=== PATIENT | male | born 1970 | race Caucasian/White ===

== ENCOUNTER 2021-09-08 09:40 | Outpatient (CLI) | payer OTHER, SELFPAY ==
[2021-09-08 21:14] LABS: Prostate Specific Antigen 1.5 ng/mL (< OR = 4.0)
== END 2021-09-08 09:41 | disposition home or self-care (01) ==
LOC: ANHGOSHLAB 09:42
PROVIDERS: PCP Internal Medicine; Visit Provider Nurse Practitioner
DX: Z12.5 Encounter for screening for malignant neoplasm of prostate (principal)
CPT/HCPCS: 36415; 84153; G0103

== ENCOUNTER 2022-02-25 01:20 | Day surgery (SDC) | payer OTHER, SELFPAY ==
[2022-02-16 09:26] VITALS: BMI 32.5
[2022-02-25 08:06] VITALS: BP 138/84; PULSE 76; RESP 16; TEMP 36.1; O2SAT 98; BMI 32.5
[2022-02-25] MEDS: LACTATED RINGERS 1,000 ML 150 ML IV CONT (08:13)
--- NOTE | 2022-02-25 08:51 | P.PNAN_ITS ---
Anes - Initial Pre Proc Eval Procedure: Operation Date: 02/25/22 08:30 Proposed Procedures p Screening Colonoscopy - Memo Collazo MD Date/Time: 02/25/22 08:51 Surgeon: Memo Collazo MD Pre Op Diagnosis: neoplasm screening Patient Data Age: 52 Gender: M Height: 1.75 m Weight: 100.1 kg Last Vital Signs Temp 97 F L 02/25/22 08:06 Pulse 76 02/25/22 08:06 Resp 16 02/25/22 08:06 BP 138/84 02/25/22 08:06 Pulse Ox 98 02/25/22 08:06 O2 Del Method Room Air 02/25/22 08:06 Allergies Allergy/AdvReac Type Severity Reaction Status Date / Time Penicillins Allergy Unknown Unknown Verified 02/25/22 08:05 coconut Allergy Anaphylaxis Verified 02/25/22 08:05 Home Medications Medication Instructions Recorded Confirmed Type dexlansoprazole 30 mg 30 mg PO DAILY PRN Acid Reflux 10/28/21 02/25/22 History capsule,biphase delayed release (Dexilant) Patient hx anesthesia problems: none Family hx anesthesia problems: none Results Review: All pre-operative results and documents have been reviewed as part of the pre- operative evaluation. FOR[facility]LY [facility], [facility] Past Medical History Medical History Hyperkalemia Hyperlipidemia CARLEEN (obstructive sleep apnea) Polycythemia Family History Family History Mother Family history of lung cancer Grandparent Family history of lung cancer Family history of malignant neoplasm of bone Family history of malignant neoplasm of urinary bladder Social History Social History Smoking status: Never smoker Alcohol intake: current Drinks per week: 2 Alcohol use details: Pt drinks socially. Substance use: never Substance use type: does not use Living arrangements: with family Spiritual care concerns: No Anes - Eval Final PreProcedure Day of Procedure 02/25/22 08:51 Patient weight: normal Heart: regular rate and rhythm Lungs: clear to auscultation Airway: Mallampati scale class II Neurological: alert and oriented Last oral intake: >/= 8 hours ASA classification: II Emergent: no Anesthetic plan: proceed Anesthesia type and monitoring: general GIVS and standard monitoring Results Review: All pre-operative results and documents have been reviewed as part of the pre- operative evaluation. Informed Consent: The patient's anesthetic plan and its attendant risks and benefits were discussed with the patient/family/POA. Questions were solicited and answers provided to the satisfaction of the patient/family/POA.
--- NOTE | 2022-02-25 08:51 | PM.HPGS ---
History of Present Illness History of Present Illness Consent: Risks, benefits, and alternatives have been discussed and questions answered. Patient agrees to proceed with procedure. Chief complaint: neoplasm screening Narrative: Xander Oswald is a 52 year old male here for first screening colonoscopy Review of Systems Constitutional: Constitutional: Denies headache(s) and Denies weakness Eyes: Eyes: Denies blurry vision ENT: Reports Normal hearing present, Denies headache(s) and Denies neck pain Cardiovascular: Cardiovascular: Denies chest pain and Denies dyspnea Respiratory: Respiratory: Denies dyspnea Gastrointestinal: Gastrointestinal: Reports no additional gastrointestinal complaints Genitourinary: Genitourinary: Denies dysuria Musculoskeletal: Musculoskeletal: Denies neck pain Integumentary/Breasts: Skin/Breast: Denies dry skin Neurologic: Reports Normal hearing present, Denies headache(s) and Denies weakness Psychiatric: Psychiatric: Denies anxiety Endocrine: Endocrine: Denies change in body appearance Hematologic/Lymphatic: Hematologic/Lymphatic: Denies easy bleeding Allergic/Immunologic: Allergic/Immunologic: Denies urticaria PMFSH Past Medical History Medical History Hyperkalemia Hyperlipidemia CARLEEN (obstructive sleep apnea) Polycythemia Family History Family History Mother Family history of lung cancer Grandparent Family history of lung cancer Family history of malignant neoplasm of bone Family history of malignant neoplasm of urinary bladder Social History Social History Smoking status: Never smoker Alcohol intake: current Drinks per week: 2 Alcohol use details: Pt drinks socially. Substance use: never Substance use type: does not use Living arrangements: with family Spiritual care concerns: No Meds Home Medications and Allergies Home Medications Medication Instructions Recorded Confirmed Type dexlansoprazole 30 mg 30 mg PO DAILY PRN Acid Reflux 10/28/21 02/25/22 History capsule,biphase delayed release (Dexilant) Allergies Allergy/AdvReac Type Severity Reaction Status Date / Time Penicillins Allergy Unknown Unknown Verified 02/25/22 08:05 coconut Allergy Anaphylaxis Verified 02/25/22 08:05 Vital Signs Vital Signs - 24 hr 02/25/22 08:06 Temperature 97 F L Pulse Rate 76 Respiratory Rate 16 Blood Pressure 138/84 Pulse Oximetry 98 Oxygen Delivery Room Air Exam Const: General: comfortable and no acute distress HENMT: Face/Nose/Sinus: Normal nares present Eyes: General: appearance normal, both eyes and all related structures Neck: Neck: no JVD Resp: Auscultation: clear to auscultation bilaterally Cardio: Rate: regular rate Rhythm: regular rhythm GI: Inspection: non-distended GI Palp: Yes Soft to palpation Skin: General skin exam: normal color Neuro: General: gait normal Speech: normal speech Extrem: General: normal to inspection Psych: Mental Status: mental status grossly normal Assessment and Plan Assessment and plan (1) Screening for colon cancer: Code(s): Z12.11 - Encounter for screening for malignant neoplasm of colon Status: Acute Assessment and Plan: colonoscopy
[2022-02-25 09:12] VITALS: BP 111/85; PULSE 87; RESP 12; O2SAT 97
[2022-02-25 09:22] VITALS: BP 124/89; PULSE 71; RESP 14; O2SAT 96
[2022-02-25 09:32] VITALS: BP 122/90; PULSE 68; RESP 18; O2SAT 97
== END 2022-02-25 09:40 | disposition home or self-care (01) ==
PROVIDERS: PCP Internal Medicine; Visit Provider Internal Medicine Gastroenterology
PROC: 0DJD8ZZ Inspection of Lower Intestinal Tract, Via Natural or Artificial Opening Endoscopic (ICD-10-PCS; CPT 45378; principal; 2022-02-25 08:30)
DX: Z12.11 Encounter for screening for malignant neoplasm of colon (principal); K64.8 Other hemorrhoids; D12.5 Benign neoplasm of sigmoid colon; G47.33 Obstructive sleep apnea (adult) (pediatric)
CPT/HCPCS: 45385; 88305; J2704; J7120

== ENCOUNTER 2023-02-01 09:21 | Outpatient (CLI) | payer OTHER, SELFPAY ==
[2023-02-01 19:25] LABS: Iron 106 ug/dL (49-181)
[2023-02-01 19:38] LABS: Percent Iron Saturation 35 % (20-50)
[2023-02-01 19:54] LABS: Parathyroid Intact 37.4 pg/mL (7.5-53.5)
[2023-02-01 19:55] LABS: Vitamin D 25 Hydroxy 39.2 ng/mL
[2023-02-01 20:14] LABS: Hepatitis B Surface Antigen Negative (Negative)
[2023-02-01 20:22] LABS: HIV 1/2 Ab P24 Ag Result Negative (Negative)
[2023-02-01 20:31] LABS: Hepatitis C Virus Antibody Negative (Negative)
[2023-02-03 09:54] LABS: Immunoglobulin A 179 mg/dL (47-310); TTG IGA AB <1.0 U/mL (<15.0)
[2023-02-03 11:18] LABS: Erythropoietin (EPO) 9.6 mIU/mL (2.6-18.5)
[2023-02-10 17:48] LABS: Parathyroid Hormone Related Pr 22 pg/mL (11-20)
== END 2023-02-01 09:22 | disposition home or self-care (01) ==
LOC: ANHGOSHLAB 09:23
PROVIDERS: PCP Internal Medicine; Visit Provider Nurse Practitioner
DX: E83.52 Hypercalcemia (principal); R74.01 Elevation of levels of liver transaminase levels; D75.1 Secondary polycythemia
CPT/HCPCS: 36415; 82306; 82330; 82668; 82784; 83519; 83540; 83550; 83970; 84443; 86364; 86703; 86803; 87340; G0432

== ENCOUNTER 2023-02-10 07:43 | Outpatient (CLI) | payer OTHER, SELFPAY ==
--- NOTE | ~2023-02-10 | US_ITS ---
US right upper quadrant DATE: 02/10/2023 08:19 INDICATION: Elevated serum enzymes TECHNIQUE: Real time imaging of liver, gallbladder, pancreas, doppler COMPARISON: 10/06/2016 CT abdomen pelvis FINDINGS: There is hepatic steatosis. No hepatic space occupying mass lesion is detected. Normal he patopedal portal venous flow. No pancreatic mass lesion. The common bile duct measures 4 mm, normal. No gallstones, gallbladder wall thickening or abnormal pericholecystic fluid. IMPRESSION: Hepatic steatosis Reviewed, dictated and finalized at [facility]. Reviewed, dictated and finalized at [facility]. E ECOLOGIST IMPRESSION: Hepatic steatosis
== END 2023-02-10 07:44 ==
LOC: MICIMG 07:43
PROVIDERS: PCP Nurse Practitioner; Visit Provider Nurse Practitioner
DX: R74.01 Elevation of levels of liver transaminase levels (principal); K76.0 Fatty (change of) liver, not elsewhere classified
CPT/HCPCS: 76705

== ENCOUNTER → 2023-03-17 09:47 | Outpatient (CLI) | payer OTHER, SELFPAY ==
--- NOTE | ~2023-03-17 | XR_ITS ---
Right Knee Technique: AP, lateral, and sunrise views were obtained. Clinical History: Pain Findings: No fracture or dislocation is seen. Osseous alignment is anatomic. Minimal patellar spurrin g present. Soft tissues are unremarkable. No joint effusion is seen. Impression: Minimal patellar spurring. Reviewed, dictated and finalized at [facility]. R BUS DRIVER Impression: Minimal patellar spurring.
== END ==
PROVIDERS: PCP Nurse Practitioner; Visit Provider Clinical Nurse Specialist
DX: M25.561 Pain in right knee (principal)
CPT/HCPCS: 73562

== ENCOUNTER 2023-04-28 08:14 | Outpatient (CLI) | payer OTHER, SELFPAY ==
[2023-04-28 15:23] LABS: Alanine Aminotransferase 110 U/L (6-50); Albumin Level 4.8 g/dL (3.5-5.1); Alkaline Phosphatase 68 U/L (38-126); Aspartate Amino Transferase 58 U/L (17-59); Cholesterol 176 mg/dL (0-200); HDL Direct 37 mg/dL; Triglycerides 193 mg/dL (<150)
[2023-04-28 15:34] LABS: LDL Cholesterol Direct 112 mg/dL
== END 2023-04-28 08:15 | disposition home or self-care (01) ==
LOC: ANHGOSHLAB 08:16
PROVIDERS: PCP Nurse Practitioner; Visit Provider Nurse Practitioner
DX: E78.5 Hyperlipidemia, unspecified (principal)
CPT/HCPCS: 36415; 80061; 80076

== ENCOUNTER 2024-05-01 10:32 | Outpatient (CLI) | payer OTHER, SELFPAY ==
--- NOTE | ~2024-05-01 | XR_ITS ---
XR wrist LT 2V Ordering provider: ASIM Burton History: . M25.539 - Pain in unspecified wrist . Comparison: None. FINDINGS: BONES: No acute fracture or dislocation. No definite scaphoid fracture. JOINT SPACES: Well maintained. SOFT TISSUES: Normal. IMPRESSION: No acute osseous abnormality left wrist. Reviewed, dictated and finalized at [facility].
== END 2024-05-01 10:33 | disposition home or self-care (01) ==
LOC: GOSHIMG 10:33
PROVIDERS: PCP Internal Medicine; Visit Provider Internal Medicine
DX: M25.532 Pain in left wrist (principal)
CPT/HCPCS: 73100

== ENCOUNTER 2024-09-05 14:00 | Outpatient (CLI) | payer OTHER, SELFPAY ==
--- OUTSIDE RECORDS SUMMARY | 2024-09-05 14:04 | XMS_ITS | Clinical Summary ---
Author Organization [facility] Address [address] [place] [id number] Care Team Providers Care Export Manager Name Role Phone Unavailable Primary Care Provider Unavailabl e Social History Tobacco Use Types Packs/Day Years Used Date Smoking Tobacco: Never Assessed Sex and Gender Information Value Date Recorded Sex Assigned at Not on file Legal Sex Male 7:25 PM CDT Gender Identity Not on file Sexual Orientation Not on file Plan of Treatment Health Maintenance Due Date Last Done Comments Colorectal Cancer Screening Colonoscopy (10 Years) 1971 Annual Physical 1974 Hepatitis C 1989 DTaP, Tdap and Td Vaccines ( 1 - Tdap) 1990 Hepatitis B Vaccines (1 of 3 - 19+ 3-dose series) 1990 Pneumococcal Vaccine: 50+ Ye ars (1 of 1 - PCV) 2021 Zoster Vaccines (1 of 2) 2021 COVID-19 Vaccine ( - 2023-2 5 season) 2023 Meningococcal B Vaccine Aged Out No l onger eligible based on patient's age to complete this topic Meningococcal Vaccine Aged Out No omaira ingrid eligible based on patient's age to complete this topic RSV Immunizations Under 20 Months Aged Out No longer eligible based on patient's age to complete this topic
--- OUTSIDE RECORDS SUMMARY | 2024-09-05 14:04 | XMS_ITS | Clinical Summary ---
Author Organization [facility] christine Adolfo Address [address] [place] [address] Care Team Providers Care Maintenance Mechanic Telephone Name Role Phone Unavailable Primary Care Provider Unavailabl e Allergies Active Allergy Reactions Criticality Noted Date Comments Penicillins Unknown 09/05/2024 Medications atorvastatin (LIPITOR) 20 mg tablet Take 1 Tablet by mouth daily. 07/22/2024 Active OMEGA-3 FATTY ACIDS-FISH OIL ORAL Take by mouth. Active multivitamin (DAILY-RATNA) tablet Take 1 Tablet by mouth daily. Active ASCORBIC ACID, VITAMIN C, ORAL Take by mouth. Active Active Problems No known active problems Encounters Date Type Department Care Team Description 09/05/2024 1:30 PM CDT Office Visit [facility] Oncology and Hematology - [place] [address] [place] [address] Jessee Brito MD Polycythemia, secondary (Primary Dx) from Last 3 Months Family History Medical History Relation Name Comments No Known Problems Father No Known Problems Half-Sister 1 No Known Problems Half-Sister 2 No Known Problems Half-Sister 3 Lung Cancer Mother Relation Name Status Comments Father Alive Half-Sister 1 Alive Half-Sister 2 Alive Half-Sister 3 Alive Mother Social History Tobacco Use Types Packs/Day Years Used Date Smoking Tobacco: Never Smokeless Tobacco: Never Tobacco Cessation:Counseling Given: Not Answered Alcohol Use Standard Drinks/Week Comments Yes 0 (1 standard drink = 0.6 oz pur e alcohol) Socially Sex and Gender Information Value Date Recorded Sex Assigned at Not on file 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 Gender Identity Not on file Sexual Orientation Not on file Last Filed Vital Signs Vital Sign Reading Time Taken Comments Blood Pressure 122/69 09/05/2024 1:14 PM CDT Pulse 69 09/05/2024 1:14 PM CDT Temperature 36.4 C (97.6 F) 09/05/2024 1:14 PM CDT Respiratory Rate 14 09/05/2024 1:14 PM CDT Oxygen Saturation 97% 09/05/2024 1:14 PM CDT Inhaled Oxygen Concentration - - Weight 104.3 kg (230 lb) 09/05/2024 1:14 PM CDT Height 175.3 cm (5' 9) 09/05/2024 1:14 PM CDT Body Mass Index 33.97 09/05/2024 1:14 PM CDT Plan of Treatment Upcoming Encounters Date Type Department Care Team (Late st Contact Info) Description 09/19/2024 4:30 PM CDT Telephone Check Up [facility] Oncology and Hematology [facility] [address] [facility] [address] [place] [address] Jessee Brito MD [address] [facility] [address] [place] [address] Health Maintenance Due Date Last Done Comments DTAP/TDAP/TD VACCINES (1 - Tdap) 1990 HEPATITIS B VACCINES (1 of 3 - 19+ 3-dose series) 02/06 COLORECTAL SCREENING 02/17/2016 Colorectal Cancer Screening 02/17/2016 FIT-DNA Q 3 years 02/17/2016 FIT/FOBT Q 1 year 02/17/2016 Flex Sig/CT Colonography Q 5 years 02/17/2016 ZOSTER VACCINE (1 of 2) 2021 Preventative Visit- Commercial 02/07/2024 INFLUENZA VACCINE (#1) 2024 Insurance [facility] [id number] POS II
--- OUTSIDE RECORDS SUMMARY | 2024-09-05 14:04 | XMS_ITS | Encounter Summary ---
Author Organization [facility] Address [address] [place] [address] Care Team Providers Care Biofuels Engineering Manager Name Role Phone Unavailable Primary Care Provider Unavailabl e Reason for Referral * Laboratory Services (Routine) - Open Specialty Diagnoses / Procedures Referred By Laurence t Referred To Contact Diagnoses Polycythemia, secondary Procedures JAK2 MUTATION [facility]see Brito [facility] [address] [facility] [address] [place] [phone] Phone: tel: fax: Referral ID Status Reason Start Date Expiration Date Visits Re quested Visits Authorized [id number] Open 09/05/2024 10/06/2025 1 1 Encounter Details Date Type Department Care Team (Late st Contact Info) Description 09/05/2024 1:30 PM CDT Office Visit [facility] Oncology and Hematology - [place] [address] [place] [address] [place] [address] Jessee Brito MD [facility] [employer] [facility] [address] [place] [phone] Polycythemia, secondary (Primary Dx) Social History Tobacco Use Types Packs/Day Years Used Date Smoking Tobacco: Never Smokeless Tobacco: Never Tobacco Cessation:Counseling Given: Not Answered Alcohol Use Standard Drinks/Week Comments Yes 0 (1 standard drink = 0.6 oz pur e alcohol) Socially Sex and Gender Information Value Date Recorded Sex Assigned at Not on file 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 Gender Identity Not on file Sexual Orientation Not on file documented as of this encounter Last Filed Vital Signs Vital Sign Reading [...] Mass Index 33.97 09/05/2024 1:14 PM CDT documented in this encounter Plan of Treatment Upcoming Encounters Date Type Department Care Team (Late st Contact Info) Description 09/19/2024 4:30 PM CDT Telephone Check Up [facility] Oncology and Hematology - [place] [address] [facility] [address] [place] [address] Jessee Brito MD [address] [facility] [address] [place] [address] Scheduled Orders Name Type Priority Associated Diagnoses Orde r Schedule CBC WITH DIFFERENTIAL Lab Stat Polycythemia, secondary Expected: 09/05/2024, Expires: 09/05/2025 COMPREHENSIVE METABOLIC PANEL Lab Stat Polycythemia, secondary Expected: 09/05/2024, Expires: 09/05/2025 ERYTHROPOIETIN LEVEL Lab Routine Polycythemia, secondary Expected: 09/05/2024, Expires: 09/05/2025 JAK2 MUTATION Lab Routine Polycythemia, secondary Expected: 09/05/2024, Expires: 09/05/2025 documented as of this encounter Visit Diagnoses Diagnosis Polycythemia, secondary- Primary documented in this encounter
[2024-09-05 14:15] LABS: Hematocrit 43.6 % (42.0-52.0); Hemoglobin 15.1 g/dL (14.0-18.0); Immature Granulocyte Percent A 0.5 % (0-0.5); Lymphocytes Absolute Auto 2.09 K/mm3 (0.9-3.2); Mean Corpuscular HGB Conc 34.6 g/dl (32-36); Mean Corpuscular Hemoglobin 30.0 pg (26-34); Mean Corpuscular Volume 86.7 fl (80-100); Nucleated Red Blood Cells Absolute Auto 0.000 K/mm3 (0.0-0.012); Nucleated Red Blood Cells Perc 0.0 % (0.0-0.2); Platelet Count Result 204 k/mm3 (150-375); Red Blood Count 5.03 M/mm3 (4.6-6.20); White Blood Count 6.5 K/mm3 (4.5-10.0)
[2024-09-05 16:27] LABS: Alanine Aminotransferase 56 U/L (6-50); Albumin Level 4.7 g/dL (3.5-5.1); Alkaline Phosphatase 73 U/L (38-126); Anion Gap 8 mmol/L (4-12); Aspartate Amino Transferase 64 U/L (17-59); Bilirubin,Total 1.0 mg/dL (0.2-1.3); Blood Urea Nitrogen 19 mg/dL (9-20); Calcium 9.6 mg/dL (8.4-10.2); Carbon Dioxide 28 mmol/L (22-30); Chloride 101 mmol/L (98-107); Estimated Glomerular Filt Rate > 60; Glucose 82 mg/dL (65-110); Potassium 4.0 mmol/L (3.4-5.0); Sodium 137 mmol/L (137-145); Total Protein 7.8 g/dL (6.3-8.2)
== END 2024-09-05 14:01 | disposition home or self-care (01) ==
LOC: ANHLAB 14:01
PROVIDERS: PCP Internal Medicine; Visit Provider Internal Medicine Hematology & Oncology
DX: D75.1 Secondary polycythemia (principal)
CPT/HCPCS: 36415; 80053; 82668; 85025